=== PATIENT | female | born 1965 | race Caucasian/White ===

== ENCOUNTER 2018-07-27 06:04 | Emergency (ER) | payer BC, SELFPAY ==
[2018-07-27 06:17] VITALS: BP 89/56; PULSE 70; RESP 14; TEMP 36.4; O2SAT 98
--- NOTE | 2018-07-27 06:31 | W.ED.GENAD ---
Discharge Plan Disposition Patient Disposition: HOME Condition: Good Discharge Details Chief Complaint: RashLesion Clinical Impression: Cellulitis, Encounter for evaluation of wound Primary Care Provider: Cyndie Gómez ED Provider: Mukesh Viveros Home Meds and New Rx's Prescriptions: New doxycycline hyclate 100 mg capsule 100 mg PO BID Qty: 20 RF: 0 No Action No Known Home Meds RF: 0 Discharge Instructions Instructions: Cellulitis (ED) Additional Instructions: Please take the antibiotic as directed. If you notice any spreading of the redness, increase in the size, worsening tenderness, please return immediately. If you notice any worsening of your symptoms, or any new symptoms such as vomiting, diarrhea, fever, chills, shortness of breath, chest pain, numbness, weakness, or fainting , please return immediately to the emergency department for reevaluation. Please follow up with your primary care provider as soon as possible for reassessment and reevaluation. As always, it was a pleasure participating in your medical care today. Referrals: Cyndie Gómez [Primary Care Provider] - Medical Decision Making This is a 53-year-old female who presents for evaluation of a bite. She states that she saw a tick there earlier this morning, pulled it off with her however she feels that the body crawled back in. And she went to get checked out. Exam demonstrates a small little violaceous lesion roughly to 3 mm in diameter, with mild surrounding erythema. No evidence of erythema multiforme, erythema or migraines. Bedside ultrasound demonstrates no evidence of fluctuance or abscess. Patient is insistent that it was a tick. With no signs of severe cellulitis or severe Lyme, we will give a prescription for doxycycline to be taken as needed. We discussed risks and benefits of this. I have extensively reviewed the treatment plan and discharge instructions with the patient. I have addressed all patient concerns at this time. The patient was made aware of what symptoms to monitor for that would warrant a return to the emergency department. Discussed the plan with the patient, they demonstrate verbal understanding and agreement with our assessment and plan at this time. HPI General Date/Time Provider Initiated Documentation: 07/27/18 06:21. HPI Narrative: This is a 53-year-old female who presents today for evaluation of a wound on her right flank. Patient states that this morning she noticed a tick on that region, she states that she and her pulled it off with tweezers however she was concerned that the body kari itself back into the skin and she is been unable to get it out since then. She states that since then she has an area of small irritation redness on her right flank informed to be checked out to make sure there was no body and there is still. Patient has no other complaints at this time. She denies any fever, chills, nausea vomiting or diarrhea. Tetanus is up-to-date, she has no medication allergies to antibiotics. Related Data Home Medications Medication Instructions Recorded Confirmed Unknown [No Known Home Meds] 07/27/18 07/27/18 doxycycline hyclate 100 mg PO BID #20 cap 07/27/18 Previous Rx's Medication Instructions Recorded doxycycline hyclate 100 mg PO BID #20 cap 07/27/18 Allergies Allergy/AdvReac Type Severity Reaction Status Date / Time codeine AdvReac Nausea Unverified 07/27/18 06:31 General Stated Complaint: RashLesion ADOLFO: 5 Review of Systems Review of Systems All systems reviewed & are unremarkable except as noted in HPI and below PFSH Social History Smoking/Tobacco Use Status: Never Alcohol Intake: never Substance use type: does not use Do you feel safe at home: Yes Do you feel safe in your relationship?: Yes Exam Narrative Exam Narrative: 1.Const: Well-nourished, Well-developed, appearing stated age 2.Eyes: PERRL, no conjunctival injection, and symmetrical lids. 3.ENT: Atraumatic external nose and ears. Moist MM. Neck: Symmetric, trachea midline, No thyromegaly. 4.CVS: +S1/S2, No murmurs or gallops. Peripheral pulses 2+ and equal in all extremities. Brisk capillary refill in all extremities. 5.RESP: Unlabored respiratory effort. Clear to auscultation bilaterally. No wheezes rales or rhonchi 6.GI: Soft, Nontender/Nondistended, No hepatosplenomegaly. No guarding or rebound. 7.MSK: Normocephalic/Atraumatic, Extremities w/o deformity or ttp No cyanosis or clubbing, Normal movement of all extremities 8.Skin: Warm, Dry. No rashes or lesions. Right flank demonstrates a small scott lesion roughly 2 mm in diameter on the right flank, with mild erythema surrounding it, notable self-induced excoriations. No other abnormalities. No evidence of ringlike lesions 9.Neuro: veterinary technologist II-XII grossly intact. Sensation grossly intact, no focal neurologic deficits. 10.Psych: (AAO) x3. Appropriate mood and affect Course Vital Signs Temperature 36.4 C L 07/27/18 06:17 Pulse 70 07/27/18 06:17 Respiratory Rate 14 07/27/18 06:17 Blood Pressure 89/56 L 07/27/18 06:17 Pulse Oximetry 98 07/27/18 06:17 Temperature 36.4 C L 07/27/18 06:17 Temperature Source Tympanic 07/27/18 06:17 Pulse 70 07/27/18 06:17 Respiratory Rate 14 07/27/18 06:17 Blood Pressure 89/56 L 07/27/18 06:17 Blood Pressure Position Sitting 07/27/18 06:17 Pulse Oximetry 98 07/27/18 06:17 Oxygen Delivery Method Room Air 07/27/18 06:17 Oxygen Flow Rate 0 07/27/18 06:17 Pain Level 1 07/27/18 06:17 Comment 07/27/18 06:17
[2018-07-27 06:36] VITALS: BP 89/56; PULSE 70; RESP 14; TEMP 36.4; O2SAT 98
== END 2018-07-27 06:39 | disposition home or self-care (01) ==
PROVIDERS: Emergency Provider Student in an Organized Health Care Education/Training Program; PCP Family Medicine
DX: L03.311 Cellulitis of abdominal wall (principal)
CPT/HCPCS: 99283

== ENCOUNTER 2019-04-17 11:02 | Outpatient (REF) | payer BC, SELFPAY ==
[2019-04-17 13:23] LABS: ALT 17 U/L (14-59); AST 11 U/L (15-37); Albumin 4.4 g/dL (3.4-5.0); Alkaline Phosphatase 55 U/L (46-116); Anion Gap 10.7 mmol/L (3-11); BUN 12 mg/dL (7-18); Bilirubin, Total 0.7 mg/dL (0.2-1.0); C-Reactive Protein 0.08 mg/dL (0.0-0.3); CO2 27.3 mmol/L (21.0-32.0); CREATININE 0.66 mg/dL (0.55-1.02); Calcium 9.4 mg/dL (8.5-10.1); Chloride 104 mmol/L (98-107); Glucose 95 mg/dL (74-106); Potassium 4.4 mmol/L (3.5-5.1); Sodium 142 mmol/L (136-145); TSH (W/Ref FT4) 1.02 uIU/mL (0.36-3.74); Total Protein 7.6 g/dL (6.4-8.2)
[2019-04-17 13:33] LABS: HCT 41.3 % (36.0-46.0); HGB 13.6 g/dL (12.0-15.5); Mean Corp. HGB Concentration 32.9 g/dL (32.0-36.0); Mean Corpuscular Hemoglobin 30.6 pg (27.0-33.0); Mean Corpuscular Volume 92.8 fL (80-95); Mean Platelet Volume 9.4 fL (8.0-11.0); Platelet Count 336 x1000/uL (130-400); RBC 4.45 m/cumm (4.00-5.20); White Blood Cell Count 5.22 k/cumm (4.4-10.8)
[2019-04-17 14:21] LABS: ESR 12 mm/hr (0-30)
[2019-04-19 21:38] LABS: Anaplasma phagocytophilum Negative (Negative); B. miyamotoi PCR Negative (Negative); Babesia divergens/MO-1 Negative (Negative); Babesia duncani Negative (Negative); Babesia microti Negative (Negative); Ehrlichia chaffeensis Negative (Negative); Ehrlichia ewingii/canis Negative (Negative); Ehrlichia muris eauclairensis Negative (Negative)
[2019-04-20 15:02] LABS: ANA Interpretation Negative (Negative)
[2019-04-20 15:31] LABS: Lyme Ab w Rflx to Lyme Confirm Negative (Negative)
== END 2019-04-17 11:22 ==
LOC: NCHCN 11:02
PROVIDERS: PCP Family Medicine; Visit Provider Family Medicine
DX: M25.50 Pain in unspecified joint (principal); R53.83 Other fatigue
CPT/HCPCS: 80053; 85027; 85652; 87798; 84443; 86038; 86140; 86431; 86618

== ENCOUNTER 2020-02-15 18:45 | Outpatient (REF) | payer BC, SELFPAY ==
[2020-02-19 23:07] LABS: Patient Race White; SARS-CoV-2 RNA Undetected (Undetected); SARS-CoV-2 Specimen Source Nasal
== END 2020-02-15 19:05 ==
LOC: NCHCN 18:45
PROVIDERS: PCP Family Medicine; Visit Provider Nurse Practitioner Family
DX: R53.83 Other fatigue (principal); R51.9 Headache, unspecified
CPT/HCPCS: U0003

== ENCOUNTER 2020-02-24 12:03 | Outpatient (REF) | payer BC, SELFPAY ==
[2020-02-24 22:03] LABS: Abs Immature Grans 0.03 10^3/uL (0.0-0.06); Absolute Basophil Count 0.02 10^3/uL (0.0-0.2); Absolute Eosinophil Count 0.06 10^3/uL (0.0-0.7); Absolute Lymphocyte Count 1.08 10^3/uL (1.2-3.4); Absolute Neutrophil Count 3.12 10^3/uL (1.2-6.7); Basophils % 0.4; Eosinophils % 1.2; HCT 37.7 % (36.0-46.0); HGB 12.4 g/dL (11.2-15.7); Immature Grans % 0.6; Lymphocytes % 22.5; MCH 30.8 pg (27.0-33.0); MCHC 32.9 % (32.0-36.0); MCV 93.5 fL (80-95); MPV 10.7 fL (8.0-11.0); Monocytes % 10.4; Neutrophils % 64.9; Nucleated RBC 0 %; Platelet Count 254 10^3/uL (130-400); RBC 4.03 10^6/uL (3.93-5.22); RDW 11.4 % (11.7-14.6); RDW-SD 38.3 fL; WBC 4.81 10^3/uL (4.4-10.8)
[2020-02-24 22:09] LABS: ALT 16 U/L (14-59); AST 10 U/L (15-37); Albumin 3.8 g/dL (3.4-5.0); Alkaline Phosphatase 44 U/L (46-116); Anion Gap 5.9 mmol/L (3-11); BUN 8 mg/dL (7-18); Bilirubin, Total 0.7 mg/dL (0.2-1.0); CO2 30.1 mmol/L (21.0-32.0); CREATININE 0.72 mg/dL (0.55-1.02); Calcium 8.7 mg/dL (8.5-10.1); Chloride 103 mmol/L (98-107); Glucose 94 mg/dL (74-106); Sodium 139 mmol/L (136-145); Total Protein 6.9 g/dL (6.4-8.2)
== END 2020-02-24 12:23 ==
LOC: NCHCN 12:03
PROVIDERS: PCP Family Medicine; Visit Provider Family Medicine
DX: R53.83 Other fatigue (principal)
CPT/HCPCS: 80053; 85025

== ENCOUNTER 2021-01-15 07:51 | Emergency (ER) | payer BC, SELFPAY ==
[2021-01-15 07:54] VITALS: BP 92/58; PULSE 65; RESP 17; TEMP 36.5; O2SAT 98
--- NOTE | 2021-01-15 08:10 | ED.GENADUL_ITS ---
Discharge Plan Disposition Patient Disposition: HOME Condition: Stable Discharge Details Clinical Impression: Acute pain of right wrist Primary Care Provider: Cyndie Gómez ED Provider: Violetta Cristina Home Meds and New Rx's Prescriptions: No Action No Known Home Meds RF: 0 Discharge Instructions Instructions: Wrist Injury (ED) Additional Instructions: As we discussed, I am concerned for potential injury to your navicular bone. The read from radiology is pending but I do not appreciate any acute fracture. I will call you with the results once they are back. Please continue with thumb spica splint until reevaluated by orthopedics. Please encourage rest, ice, amena vation. May continue with Tylenol and ibuprofen as discomfort. Please call orthopedics on Saturday to schedule follow-up appointment, number listed below. If you develop any new or worsening symptoms please seek care urgently once again. Referrals: Cyndie Góemz [Primary Care Provider] - [place] Pettit MD [ [facility] STAFF PHYSICIAN] - Medical Decision Making Patient is a pleasant 55-year-old [id number] female presenting today after tripping over a hose while running after a chicken and falling on her outstretched right hand. This occurred yesterday. Has had pain in the distal radius and proximal radial aspect of the right hand. She denies other injury the time of the incident. No numbness or tingling. On exam, patient appears nontoxic. She has 2+ distal pulses. Full range of motion of fingers and elbow. Patient is holding wrist in a straight position and does not want to move secondary to pain. She does have ecchymosis and swelling over the distal radius and anatomical snuffbox. She does have si gnificant discomfort with palpation over the snuffbox. No pain with axial loading of the thumb. Ligamentously intact. Sensation is intact. Concern primarily for navicular fracture or distal radius fracture. Will obtain x-ray. Patient did take acetaminophen prior to arrival, will augment this with ibuprofen. X-ray reviewed by myself. I not appreciate any acute fracture. Will sit with a thumb spica splint. I will call the patient with a final read from radiology. I encouraged rest, ice, elevation. I remain concerned for potential navicular injury as her pain is directly over the anatomical snuffbox. I have asked that she follow-up with orthopedics for reevaluation, she will call on Saturday to schedule follow-up appointment. Return precautions were discussed. We discussed activity she should avoid. All of her questions and concerns were addressed to begin this plan HPI General Mode of arrival: ambulatory . Date/Time Provider Initiated Documentation: 01/15/21 07:54 . Limitations to Documentation: no limitations . Information obtained by: patient and RN notes reviewed . History of Present Illness 55 year old F presents to the emergency department with the chief complaint of right wrist pain, described as moderate, with intensity rated at 7. Quality is described as aching, and is localized to the right and upper extremity. Patient reports no radiation. Patient started experiencing this day(s) (1) and it has been constant. Immobilization improves symptom(s), Movement worsens symptoms . Patient notes no other symptoms.. Patient did receive the following treatments prior to arrival, other (APAP) Related Data Home Medications Medication Instructions Recorded Confirmed Unknown [No Known Home Meds] 07/27/18 01/15/21 Allergies Allergy/AdvReac Type Severity Reaction Status Date / Time codeine AdvReac Nausea Unverified 01/15/21 08:09 General Stated Complaint: Orthopedic ADOLFO: 3 Review of Systems Constitutional Constitutional: Reports as per HPI, Denies chills and Denies fever(s) Musculoskeletal Musculoskeletal: Reports as per HPI, Reports joint swelling, Denies muscle weakness, Denies numbness, Reports radiating pain into limb and Denies tingling Integumentary/Breasts Skin/Breast: Reports as per HPI, Denies rash and Denies wounds Neurologic Neurologic: Reports as per HPI, Denies numbness, Denies tingling and Denies paresthesias [facility] Social History Smoking/Tobacco Use Status: Never Smoking risk assessment performed?: Yes Alcohol Intake: never Substance use type: does not use Do you feel safe at home: Yes Do you feel safe in your relationship?: Yes Exam Const General: cooperative, healthy appearing, uncomfortable, no acute distress, well developed and well groomed Nutritional Appearance: average body habitus and well nourished Orientation: alert and awake Resp Effort & Inspection: normal respiratory effort, able to speak in complete sentences and no respiratory distress Cardio Rate: regular rate Rhythm: regular rhythm Skin General skin exam: ecchymosis (distal radius, proximal hand) Neuro General: patient alert and patient awake Cognition: normal cognition Speech: speech normal Gait: normal gait Motor: muscle tone normal throughout Sensory Exam: no sensory deficits noted Extrem Hand/finger images: 1. Area of ecchymosis and swelling. Patient is tender throughout here. Tender over the distal radius. Pain is maximal over the anatomical snuffbox. She does not have pain with axial thumb loading. She is able to flex and extend the thumb against resistance. Full range of motion of her fingers. Sensation is intact. No evidence of trauma or pain elsewhere. Full range of motion of the elbow. Psych Appearance: grossly normal and well kempt Mental Status: mental status grossly normal Speech and Movement: speech and movement normal Course Vital Signs Vital signs: Vital Signs Temperature 36.5 C 01/15/21 07:54 Pulse 65 01/15/21 07:54 Respiratory Rate 17 01/15/21 07:54 Blood Pressure 92/58 L 01/15/21 07:54 Pulse Oximetry 98 01/15/21 07:54 Temperature 36.5 C 01/15/21 07:54 Temperature Source Temporal Artery Scan 01/15/21 07:54 Pulse 65 01/15/21 07:54 Respiratory Rate 17 01/15/21 07:54 Blood Pressure 92/58 L 01/15/21 07:54 Blood Pressure Position Sitting 01/15/21 07:54 Pulse Oximetry 98 01/15/21 07:54 Oxygen Delivery Method Room Air 01/15/21 07:54 Oxygen Flow Rate 0 01/15/21 07:54 Pain Level 7 01/15/21 08:03 Comment 01/15/21 07:54
[2021-01-15] MEDS: Ibuprofen 600 MG TAB PO (08:13)
--- NOTE | 2021-01-15 08:33 | DI.RAD_ITS ---
Exam(s) XR WRIST RT COMPL NAVICULAR EXAM: XR WRIST RT COMPL NAVICULAR CLINICAL HISTORY: FOOSH. TECHNIQUE: 2D digital imaging was performed. COMPARISON: No exams were available for comparison FINDINGS: No evidence of fracture of distal radius and ulna nor significant ulnar variance. Scaphoid-navicular appears unremarkable as does the scapholunate distance. Moderate degenerative changes are noted in the 1st carpometacarpal joint, this being the articulation between the thumb metacarpal and trapezium. IMPRESSION: No acute fracture evident. Degenerative changes at the 1st carpometacarpal joint. DATA REPOSITORY: RADIATION DOSE DELIVERED:
[2021-01-15 09:24] VITALS: BP 106/55; PULSE 63; RESP 17; TEMP 36.5; O2SAT 98
--- NOTE | 2021-01-15 10:14 | DI.VRAD_ITS ---
PROCEDURE INFORMATION: Exam: XR Right Wrist Exam date and time: 01/15/2021 8:10 AM Age: 55 years old Clinical indication: Other: Foosh, RT wrist pain after fall yesterday TECHNIQUE: Imaging protocol: XR Right wrist. Views: 3 or more views. COMPARISON: No relevant prior studies available. FINDINGS: Bones/joints: Narrowing of the 1st carpometacarpal joint with associated osteophytes. Small osseous densities are present along the radial aspect the 1st carpometacarpal joint. Soft tissues: Normal. IMPRESSION: Changes of the 1st carpometacarpal joint likely reflect degenerative change although superimposed fracture remains within the differential. Adjacent osseous densities could reflect loose bodies. Dictated and Authenticated by: Marek Charles MD. Ordering:KADIE Shipley MD
== END 2021-01-15 09:21 | disposition home or self-care (01) ==
PROVIDERS: Emergency Provider Physician Assistant; PCP Family Medicine
DX: M25.531 Pain in right wrist (principal); W01.0XXA Fall on same level from slipping, tripping and stumbling without subsequent striking against object, initial encounter
CPT/HCPCS: 29125; 99283; 73110; 99282

== ENCOUNTER 2021-02-02 09:19 | Outpatient (CLI) | payer BC, SELFPAY ==
--- NOTE | 2021-02-02 08:45 | DI.RAD_ITS ---
Exam(s) XR WRIST RT COMPL NAVICULAR EXAM: XR WRIST RT COMPL NAVICULAR CLINICAL HISTORY: right wrist injury. TECHNIQUE: 2D digital imaging was performed. COMPARISON: CR,XR XR WRIST RT COMPL NAVICULAR from 01/15/2021 FINDINGS: On navicular view there is a cortical irregularity on the distal medial aspect of the scaphoid-navicu lar bone which may be a subtle fracture at this level. No other fractures identified in the carpal r ow bones. No dislocation. Degenerative changes at the 1st carpometacarpal joint are again noted. IMPRESSION: DATA REPOSITORY: RADIATION DOSE DELIVERED:
== END 2021-02-02 09:20 | disposition home or self-care (01) ==
LOC: DIORS 09:20
PROVIDERS: PCP Family Medicine; Referring Provider Family Medicine; Visit Provider Physician Assistant
DX: M25.531 Pain in right wrist (principal); M85.841 Other specified disorders of bone density and structure, right hand
CPT/HCPCS: 73110

== ENCOUNTER 2021-02-23 21:17 | Outpatient (REF) | payer BC, SELFPAY ==
[2021-02-25 13:43] LABS: COVID-19 RT-PCR UVMMC Result Negative (Negative)
== END 2021-02-23 21:18 | disposition home or self-care (01) ==
LOC: LBN 21:17
PROVIDERS: PCP Family Medicine; Visit Provider Physician Assistant Medical
DX: Z20.822 Contact with and (suspected) exposure to COVID-19 (principal); J06.9 Acute upper respiratory infection, unspecified
CPT/HCPCS: U0003

== ENCOUNTER 2021-07-03 10:56 | Outpatient (REF) | payer BC, SELFPAY ==
--- NOTE | 2021-07-03 09:30 | PAPFT_PTH ---
PATIENT: Maris Cabrera LOC: [facility]#:[id number] AGE/SX: 56/F ROOM: RE07/03/[address]: Cyndie Gómez : 1965 BED: DIS: 07/03/2021 SPEC #: [id number] RECD: 07/03/21 18:04 STATUS: DEVON RESnow #: [id number] SARAH: 07/03/21 09:[address]: Cyndie Gómez DEPT: [facility] Cytology RECD BY: Amber Cortes Tissues: 1 - CX/ENDOCX FOR PAP SMEARS Procedures: PAP THIN PREP/UVM Screening Comments: [id number] (UNSATISFACTORY FOR EVALUATION)
[2021-07-03 17:14] LABS: Calculated LDL 116 mg/dL (<100); Cholesterol 214 mg/dL (<200); HDL Cholesterol 87 mg/dL (40-60); Triglyceride 58 mg/dL (<150)
== END 2021-07-03 10:57 | disposition home or self-care (01) ==
LOC: NCHCN 10:56
PROVIDERS: PCP Family Medicine; Visit Provider Family Medicine
DX: Z00.00 Encounter for general adult medical examination without abnormal findings (principal); Z12.4 Encounter for screening for malignant neoplasm of cervix; Z11.51 Encounter for screening for human papillomavirus (HPV); R87.615 Unsatisfactory cytologic smear of cervix
CPT/HCPCS: 80061; 88142

== ENCOUNTER 2021-07-27 03:02 | Outpatient (CLI) | payer BC, SELFPAY ==
--- NOTE | 2021-07-27 15:00 | NS.NUTBLAN_ITS ---
Rin was referred for nutritional counseling for binge eating disorder with anxiety and depression 67 inches 166 lbs BMI 26 Rin reports struggling with binge eating most of her adult life. Strong family history of eating disorders. Her daughter has recovered from anorexia. 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 She states she can't sit down and prefers to work until exhaustion. She was raised in a family that focused on importance of eating healthy and being skinny. Rin used to exercise a lot. No history of purging. Food Record: Typically eats 3 well balanced meals but will 2-4 times per week binges on foods such as: pastries, pizza, popovers, fried foods and other processed sugary/salty foods. Binges are followed by regret and repulsion/anger. Rin has always been thin, despite frequent binges, but fears that as she gets older, she will start to have ill health affects. Overall health thus far has been very good. She does not want to take medications. Will not consider anti anxiety medications. Session today focused on etiology and pathology of binge eating disorder and how treatment needs to focus on the route cause of stress. Rin has a very stressful life as she works very hard, long days and is building on her property (mostly herself) and cares for her mother with alzheimer. Her binges are a result of needing a break or a release/relaxation/reward after feeling overwhelmed. Binging can be reduced/stopped once another functional coping mechanism is chosen that will help with stress relief. Rin reports she has had many periods when binging was at a minimun and she was practicing self care. She often returns to binging once self care phase is over as a result of more job responsibilities or class is completed. Session today focused on ways to identify other coping mechanisms that give Rin relaxation such as meditation, exercise, essential oils, music. Encouraged Rin to journal her feelings before and after binging and to read as much as she can on the disorder. Recommend that Rin get a therapist that specializes in over eating/binging. WIll follow up by phone in next 7 days.
== END 2021-07-27 03:03 | disposition home or self-care (01) ==
LOC: DS 03:02
PROVIDERS: PCP Family Medicine; Visit Provider Dietitian, Registered
DX: F50.81 Binge eating disorder (principal); F41.8 Other specified anxiety disorders; Z71.3 Dietary counseling and surveillance
CPT/HCPCS: 97802

== ENCOUNTER 2022-08-20 16:30 | Outpatient (REF) | payer BC, SELFPAY | END 2022-08-20 16:31 | disposition home or self-care (01) | LOC: NCHCN 16:30 | PROVIDERS: PCP Family Medicine; Visit Provider Family Medicine | DX: R30.0 Dysuria (principal) | CPT/HCPCS: 87077; 87086; 87186 ==

== ENCOUNTER 2022-10-03 10:51 | Outpatient (CLI) | payer BC, SELFPAY ==
--- NOTE | 2022-10-03 | DI.RAD_ITS ---
Exam(s) XR FOOT RT COMPLETE EXAM: XR FOOT RT COMPLETE CLINICAL HISTORY: RT FOOT PAIN, M79.671. TECHNIQUE: 2D digital imaging was performed of the right foot. Three images were obtained. AP, obl ique and lateral views were obtained. COMPARISON: No exams were available for comparison FINDINGS: BONES: There is an acute fracture through the base of the 5th metatarsal. There is very mild displac ement of the fracture. No bony destructive lesion is seen. There is a plantar calcaneal spur. JOINTS: No dislocation present. SOFT TISSUE: Soft tissue swelling at the lateral aspect of the foot. IMPRESSION: Mildly displaced fracture of the base of the 5th metatarsal with mild displacement and associated sof t tissue swelling. DATA REPOSITORY: RADIATION DOSE DELIVERED:
== END 2022-10-03 11:11 ==
LOC: DI 10:52
PROVIDERS: PCP Family Medicine; Visit Provider Family Medicine
DX: S92.351A Displaced fracture of fifth metatarsal bone, right foot, initial encounter for closed fracture (principal); X58.XXXA Exposure to other specified factors, initial encounter
CPT/HCPCS: 73630

== ENCOUNTER 2022-10-16 08:55 | Outpatient (CLI) | payer BC, SELFPAY ==
--- NOTE | 2022-10-16 08:30 | DI.RAD_ITS ---
Exam(s) XR FOOT RT COMPLETE EXAM: XR FOOT RT COMPLETE CLINICAL HISTORY: F/U FRACTURE. TECHNIQUE: 2D digital imaging was performed. COMPARISON: CR XR FOOT RT COMPLETE from 10/03/2022 FINDINGS: 3 views Again noted is a mildly displaced fracture at the base of the 5th metatarsal. No callus formation at this time. No further displacement. No additional fractures evident. No radiopaque foreign body. Large inferior calcaneal spur is noted. IMPRESSION: Mildly displaced fracture at the base of the 5th metatarsal again noted. DATA REPOSITORY: RADIATION DOSE DELIVERED:
== END 2022-10-16 08:56 | disposition home or self-care (01) ==
LOC: DIORS 08:55
PROVIDERS: PCP Family Medicine; Referring Provider Family Medicine; Visit Provider Physician Assistant
DX: S92.351D Displaced fracture of fifth metatarsal bone, right foot, subsequent encounter for fracture with routine healing (principal); X58.XXXD Exposure to other specified factors, subsequent encounter
CPT/HCPCS: 73630

== ENCOUNTER 2022-10-25 10:00 | Outpatient (CLI) | payer BC, SELFPAY ==
--- NOTE | 2022-10-25 08:00 | DI.RAD_ITS ---
Exam(s) XR FOOT RT COMPLETE EXAM: XR FOOT RT COMPLETE CLINICAL HISTORY: right foot fracture. TECHNIQUE: 2D digital imaging was performed of the right foot. Three images were obtained. AP, obl ique and lateral views were obtained. COMPARISON: CR XR FOOT RT COMPLETE from 10/16/2022 FINDINGS: BONES: There has been no significant change in alignment of the fracture through the base of the 5th metatarsal. No bony destructive lesion is seen. There is a plantar calcaneal spur. JOINTS: No dislocation present. SOFT TISSUE: Normal. IMPRESSION: Stable 5th metatarsal fracture. DATA REPOSITORY: RADIATION DOSE DELIVERED:
== END 2022-10-25 10:01 | disposition home or self-care (01) ==
LOC: DIORS 10:00
PROVIDERS: PCP Family Medicine; Referring Provider Family Medicine; Visit Provider Physician Assistant
DX: S92.351A Displaced fracture of fifth metatarsal bone, right foot, initial encounter for closed fracture (principal); X58.XXXA Exposure to other specified factors, initial encounter
CPT/HCPCS: 73630

== ENCOUNTER 2022-11-29 09:20 | Outpatient (CLI) | payer BC, SELFPAY ==
--- NOTE | 2022-11-29 09:15 | DI.RAD_ITS ---
Exam(s) XR FOOT RT COMPLETE EXAM: XR FOOT RT COMPLETE CLINICAL HISTORY: f/u 5th metatarsal fx. TECHNIQUE: 2D digital imaging was performed. COMPARISON: CR XR FOOT RT COMPLETE from 10/25/2022 FINDINGS: 3 views There has been some further healing at the fracture site of the base of the 5th metatarsal. The frac ture line is still evident but slightly less so. No additional fractures evident. No radiopaque for eign body. Moderate size inferior calcaneal spur again noted. IMPRESSION: Mild further healing at the fracture site at the base of the 5th metatarsal. DATA REPOSITORY: RADIATION DOSE DELIVERED:
== END 2022-11-29 09:21 | disposition home or self-care (01) ==
LOC: DIORS 09:20
PROVIDERS: PCP Family Medicine; Visit Provider Student in an Organized Health Care Education/Training Program
DX: S92.351D Displaced fracture of fifth metatarsal bone, right foot, subsequent encounter for fracture with routine healing (principal); X58.XXXD Exposure to other specified factors, subsequent encounter
CPT/HCPCS: 73630

== ENCOUNTER 2023-06-26 14:24 | Outpatient (REF) | payer BC, SELFPAY ==
[2023-06-26 21:29] LABS: ALT 25 U/L (14-59); AST 16 U/L (15-37); Albumin 4.4 g/dL (3.4-5.0); Alkaline Phosphatase 79 U/L (46-116); BUN 15 mg/dL (7-18); Bilirubin, Total 0.5 mg/dL (0.2-1.0); CREATININE 0.7 mg/dL (0.55-1.02); Calcium 9.5 mg/dL (8.5-10.1); Calculated LDL 111 mg/dL (<100); Chloride 105 mmol/L (98-107); Cholesterol 212 mg/dL (<200); Estimated GFR 98.95 (mL/min/1.73m2); Glucose 81 mg/dL (74-106); HDL Cholesterol 80 mg/dL (40-60); Potassium 4.9 mmol/L (3.5-5.1); Sodium 144 mmol/L (136-145); Total Protein 7.6 g/dL (6.4-8.2); Triglyceride 106 mg/dL (<150)
[2023-06-26 21:49] LABS: Vitamin D 25 Total 25.7 ng/mL (30-100)
== END 2023-06-26 14:25 | disposition home or self-care (01) ==
LOC: NCHCN 14:24
PROVIDERS: PCP Family Medicine; Visit Provider Family Medicine
DX: Z00.00 Encounter for general adult medical examination without abnormal findings (principal)
CPT/HCPCS: 80053; 80061; 82306

== ENCOUNTER 2024-08-03 18:11 | Outpatient (REF) | payer BC, SELFPAY ==
[2024-08-03 21:53] LABS: Abs Immature Grans 0.01 10^3/uL (0.0-0.06); Absolute Basophil Count 0.02 10^3/uL (0.0-0.2); Absolute Eosinophil Count 0.05 10^3/uL (0.0-0.7); Absolute Lymphocyte Count 1.55 10^3/uL (1.2-3.4); Absolute Monocyte Count 0.51 10^3/uL (0.1-0.8); Absolute Neutrophil Count 2.44 10^3/uL (1.2-6.7); Basophils % 0.4 %; Eosinophils % 1.1 %; HCT 38.5 % (36.0-46.0); HGB 12.5 g/dL (11.2-15.7); Immature Grans % 0.2 %; Lymphocytes % 33.8 %; MCH 30.6 pg (27.0-33.0); MCHC 32.5 % (32.0-36.0); MCV 94 fL (80-95); Monocytes % 11.1 %; Neutrophils % 53.4 %; Platelet Count 224 10^3/uL (130-400); RBC 4.09 10^6/uL (3.93-5.22); RDW 11.9 % (11.7-14.6); RDW-SD 41.4 fL; WBC 4.58 10^3/uL (4.4-10.8)
[2024-08-03 22:08] LABS: ALT 31 U/L (14-59); AST 21 U/L (15-37); Albumin 4.3 g/dL (3.4-5.0); Alkaline Phosphatase 73 U/L (46-116); BUN 12 mg/dL (7-18); Bilirubin, Total 0.5 mg/dL (0.2-1.0); CREATININE 0.8 mg/dL (0.55-1.02); Calcium 9.5 mg/dL (8.5-10.1); Chloride 105 mmol/L (98-107); Estimated GFR 83.78 (mL/min/1.73m2); Glucose 113 mg/dL (74-106); Potassium 4.3 mmol/L (3.5-5.1); Sodium 143 mmol/L (136-145); Total Protein 7.4 g/dL (6.4-8.2)
[2024-08-05 10:49] LABS: Lyme Ab w Rflx to Lyme Confirm Negative (Negative)
[2024-08-07 00:14] LABS: Anaplasma phagocytophilum Negative (Negative); B. miyamotoi PCR Negative (Negative); Babesia divergens/MO-1 Negative (Negative); Babesia duncani Negative (Negative); Babesia microti Negative (Negative); Ehrlichia chaffeensis Negative (Negative); Ehrlichia ewingii/canis Negative (Negative); Ehrlichia muris eauclairensis Negative (Negative)
== END 2024-08-03 18:12 | disposition home or self-care (01) ==
LOC: LBN 18:11
PROVIDERS: PCP Family Medicine; Visit Provider Nurse Practitioner Family
DX: W57.XXXA Bitten or stung by nonvenomous insect and other nonvenomous arthropods, initial encounter (principal)
CPT/HCPCS: 80053; 87798; 85025; 86618

== ENCOUNTER 2024-11-04 12:08 | Outpatient (CLI) | payer BC, SELFPAY ==
--- NOTE | 2024-11-04 15:00 | DI.RAD_ITS ---
Exam(s) XR HIP RT COMPLETE AP PELVIS EXAM: XR HIP RT COMPLETE AP PELVIS CLINICAL HISTORY: M25.551 Pain in RT hip. TECHNIQUE: 2D digital imaging was performed. Two views COMPARISON: No exams were available for comparison FINDINGS: BONES: No acute fracture is present. No bony destructive lesion is seen. JOINTS: No dislocation present. Moderate right hip joint space narrowing, greater medially. Spurring at the acetabulum and margin of the femoral head. Mild narrowing of the left hip joint space with mild periarticular spurring. Mild degenerative changes at the SI joints and pubic symphysis. SOFT TISSUE: Normal. IMPRESSION: Moderate to severe degenerative changes of the right hip. Vtku-[id number] degenerative changes of the left hip. DATA REPOSITORY: RADIATION DOSE DELIVERED:
== END 2024-11-04 12:28 ==
LOC: DI 12:09
PROVIDERS: PCP Family Medicine; Visit Provider Family Medicine
DX: M16.0 Bilateral primary osteoarthritis of hip (principal)
CPT/HCPCS: 73502

== ENCOUNTER 2025-01-29 07:30 | Day surgery (SDC) | payer BC, SELFPAY ==
--- NOTE | 2025-01-28 18:50 | W.ANESPRE ---
General Info Date of Service Date Performed: 01/29/25 Height: 5 ft 8 in Weight: 68.096 kg Body Mass Index (BMI): 22.8 Surgical Procedure: Operation Date: 01/29/25 09:20 Proposed Procedure Side Surgeon p Colonoscopy Emily Piazno MD Meds Allergies and Home Medications Allergies Allergy/AdvReac Type Severity Reaction Status Date / Time codeine AdvReac Nausea Verified 01/29/25 07:52 Home Medication ?Medication ?Instructions ?Recorded calcium 500 mg tablet 500 mg PO DAILY 01/27/25 cholecalciferol (vitamin D3) 25 25 mcg PO DAILY 01/27/25 mcg (1,000 unit) capsule multivitamin 1 tab PO DAILY 01/27/25 Current Visit Medications: Current Medications Generic Name Dose Route Start Last Admin Trade Name Freq PRN Reason Stop Dose Admin Ringer's Solution 1,000 mls @ 80 mls/hr 01/29/25 06:00 IV 01/29/25 23:59 INFUSION GERA IV Miscellaneous Supplies 1 each 01/29/25 06:00 Iv Access IV 01/29/25 23:59 DIRECTED GERA Sodium Chloride 0 ml 01/29/25 06:00 Normal Saline Flush 10 Ml Syr IV 01/29/25 23:59 PRN PRN Sodium Chloride 0 ml 01/29/25 06:00 Normal Saline 10 Ml Vial IJ 01/29/25 23:59 DIRECTED PRN Sterile Water 0 ml 01/29/25 06:00 Water,Injection,Sterile 10 Ml Vial IJ 01/29/25 23:59 DIRECTED PRN PFSH Active Problems Active Problems: Problem Status Onset Code Tubular adenoma Acute D36.9 Closed fracture of fifth metatarsal bone Acute ~10/03/22 S92.353A Arthritis of carpometacarpal (CMC) joint of right thumb Acute M18.11 Fracture of scaphoid of right wrist Acute 01/15/21 S62.001A Acute pain of right wrist Acute M25.531 Medical History Medical History History of hepatitis A History of malaria Headache Fatigue Joint pain Non-scarring alopecia Glossodynia Xerostomia Retinal disorder Anxiety Over weight Surgical History Surgical History History of appendectomy History of left knee surgery Hx of colonoscopy with polypectomy (~2018) Adenomatous 2018: tubular, sessile serrated adenomas +1cm polyp [place]sectable[place] [facility] [place] Smoking/Tobacco Use Status: Never Passive smoking exposure: No Alcohol Alcohol Intake: never Substance Use Substance use type: does not use Vital Signs and Lab Results Vital Signs Most Recent Vital Signs in EMR: Temp Pulse Resp BP Pulse Ox 36.5 C 65 16 109/63 97 01/29/25 07:54 01/29/25 07:54 01/29/25 07:54 01/29/25 07:54 01/29/25 07:54 Anesthesia Assessment and Plan Anesthesia History Personal History: No History of Anesthesia Complications Family History: No Family History of Anesthesia Complications Exercise Tolerance Exercise Tolerance: Metabolic Equivalents>4 Cardiac & Pulmonary Exam Cardiac Exam: Normal S1/S2 Heart Sounds Pulmonary Exam: Clear Bilateral Breath Sounds Implantable Cardiac Device Does patient have a Pacemaker or an ICD?: No Airway Exam Known Difficult Airway: No Mallampati Class: 3 Mouth Opening: Normal (> 3cm) Thyromental Distance: Less than 3 cm Neck Range of Motion: Full ROM Neck Circumference: Normal Teeth Condition: Normal Dentition ASA Classification ASA Score: ASA 2 Emergency Case?: No NPO Status NPO Status: NPO Clears >2 hours, Solids >8 hours Anesthesia Plan Resuscitation Status: Full Code Anesthesia Technique: General Anesthesia Airway Planned: Natural Airway Monitors Used: Standard Monitors Preoperative Comments:: 59 yo for colo. Sig PMHx: anxiety. Never smoker/EtOH. [place] [place] f[place] 150 mcg, midaz 3 mg.
[2025-01-29 07:54] VITALS: BP 109/63; PULSE 65; RESP 16; TEMP 36.5; O2SAT 97
[2025-01-29] MEDS: Lactated Ringers 1,000 ML 80 ML IV (08:04)
[2025-01-29 09:01] VITALS: BMI 22.8
--- NOTE | 2025-01-29 09:47 | W.PM.HP.N ---
Date of service: 01/29/25 Time of Service: 09:47 Assessment and Plan Assessment and plan (1) Tubular adenoma: Status: Acute Assessment and plan: Patient is a 59 yo female who presents for surveillance colonoscopy given a personal history of polyps. She denies any changes in bowel habits. She denies any recent changes in her health and is feeling better from her recent upper respiratory infection. The procedure was discussed and consent previously obtained. All questions were answered. Plan for surveillance colonoscopy. History of Present Illness Narrative: Patient is a 59 yo female who presents for a screening colonoscopy. She does have a personal history of polyps and a family history of colon cancer. Review of Systems Constitutional Constitutional: Denies chills and Denies fever(s) ENT Ears, Nose, Mouth, and Throat: Denies nasal congestion and Denies sore throat Cardiovascular Cardiovascular: Denies chest pain and Denies dyspnea Respiratory Respiratory: Denies dyspnea Gastrointestinal Gastrointestinal: Denies abdominal pain, Denies nausea and Denies vomiting Musculoskeletal Musculoskeletal: Denies arthralgias, Denies muscle weakness and Denies numbness Neurologic Neurologic: Denies numbness PFSH All Active Problems Tubular adenoma (Acute) Closed fracture of fifth metatarsal bone (Acute ~10/03/22) Arthritis of carpometacarpal (CMC) joint of right thumb (Acute) Fracture of scaphoid of right wrist (Acute 01/15/21) Acute pain of right wrist (Acute) Medical History History of hepatitis A History of malaria Headache Fatigue Joint pain Non-scarring alopecia Glossodynia Xerostomia Retinal disorder Anxiety Over weight Surgical History History of appendectomy History of left knee surgery Hx of colonoscopy with polypectomy (~2017) Adenomatous 2018: tubular, sessile serrated adenomas +1cm polyp unresectable. 3yr recall 2020, [facility] [place] Social History Smoking/Tobacco Use Status: Never Smoking risk assessment performed?: Yes Alcohol Intake: never Substance use type: does not use Housing: house Current gender identity: female Do you feel safe at home: Yes Do you feel safe in your relationship?: Yes Meds Allergies and Home Medications Allergies Allergy/AdvReac Type Severity Reaction Status Date / Time codeine AdvReac Nausea Verified 01/29/25 07:52 Home Medications ?Medication ?Instructions ?Recorded ?Confirmed ?Type calcium 500 mg tablet 500 mg PO DAILY 01/27/25 01/29/25 History cholecalciferol (vitamin D3) 25 25 mcg PO DAILY 01/27/25 01/29/25 History mcg (1,000 unit) capsule multivitamin 1 tab PO DAILY 01/27/25 01/29/25 History Exam Narrative Exam Narrative: General: Well appearing, no acute distress. Skin: Good turgor, no visible rashes or lesion HEENT: Normocephalic, atraumatic CV: Regular rate Lungs: Bilateral equal chest rise, non-labored breathing Abdomen: Non-distended Extremities: Warm, well perfused Neurologic: No focal deficits Psychiatric: Alert and oriented, normal mood and affect Results Last Vital Signs Temp 36.5 C 01/29/25 07:54 Pulse 65 01/29/25 07:54 Resp 16 01/29/25 07:54 BP 109/63 01/29/25 07:54 Pulse Ox 97 01/29/25 07:54 Time Spent Time spent with Patient: <40 minutes Time was spent: preparing to see the patient(eg.review tests), obtaining and/or reviewing separately otained hiistory and counseling the patient
[2025-01-29 10:26] VITALS: BP 103/63; PULSE 65; RESP 16; TEMP 36; O2SAT 98
--- NOTE | 2025-01-29 10:26 | W.PM.DSUDISC ---
Date of service: 01/29/25 Discharge Plan Disposition Patient Disposition: Home Condition: Good Discharge Details Reason For Visit: Personal history of colon polyps Attending Provider: Emily Pizano Primary Care Provider: Cyndie Gómez Home Meds and New Rx's Prescriptions: Continued cholecalciferol (vitamin D3) 25 mcg (1,000 unit) capsule 25 mcg PO DAILY multivitamin Tablet 1 tab PO DAILY calcium 500 mg tablet 500 mg PO DAILY Discharge Instructions Additional Instructions: Your colonoscopy went well today. You did not have any polyps. Given your family history it is recommended that you have a repeat colonoscopy in 5 yrs. Please contact the surgery office if you have further questions or concerns. 1. If tolerated, consume a soft, low fiber diet for 1-2 days. 2[address] Do not drive, drink alcohol, operate machinery, make critical decisions, or do activities that require coordination or balance for 24 hours. 3. Because air was put into your colon during the procedure, expelling air from your rectum (passing gas or farting) is normal. 4. You may not have a bowel movement for 1-3 days because of the colonoscopy prep. This is normal. 5. Go directly to the emergency room if you notice any of the following: Develop chills (warm to touch), or if you have a thermometer and your temperature is above 101 Difficulty breathing or difficultly swallowing Persistent vomiting Severe abdominal pain, other than gas cramps Severe chest pain Black, tarry stools Any bleeding ? exceeding one tablespoon 6. Call your physician if the site where your intravenous was started becomes red, swollen, painful, and warm to touch. 7. Your physician has reviewed your pre-procedure medications. Please continue to take those medications as previously ordered. You will be given specific information/education regarding any changes to your medications before leaving. Stand Alone Forms: Anesthesia Discharge InstCaren Yang (DSU) Activity:: Activity as Tolerated Diet:: As Tolerated Discharge Orders Discharge Orders: Discharge Order (Routine); Ordered 01/29/25 Ordered By: Emily Pizano DS: Diagnosis Discharge Diagnosis (1) Tubular adenoma: Status: Acute
--- NOTE | 2025-01-29 10:28 | COLE_ITS ---
Date of service: 01/29/25 Time of Service: 10:28 Colonoscopy Report Date of procedure: 01/29/25 Pre-op diagnosis general: Personal history of colon polyps, family history of colon cancer Post-op diagnosis procedure note: same Procedure: Colonoscopy Surgeon: Emily Pizano Anesthesia Type: General:No Airway Estimated blood loss (mL): 1 Pathology: none sent Complications: None Disposition: PACU Indications: Patient is a 59 yo female who presents for a surveillance colonoscopy given personal history of polyps and family history of colon cancer. Prep: Miralax/Dulcolax Procedure Start Time: 10:00 Procedure End Time: :22 Retraction Time: 8 Findings: Normal colonoscopy. Procedure Description: Informed consent was obtained. The patient was taken to the endoscopy suite and placed in the left lateral decubitus position. After adequate intravenous sedation, digital rectal exam was performed, which showed evidence of perianal skin tags. A colonoscope was inserted into the rectum and negotiated to the cecum with some difficulty given tortuous colon. The ileocecal valve and appendiceal orifice were identified. The entire colonic mucosa was then carefully circumferentially inspected upon slow withdrawal of the scope. The entire colon all appeared normal. Retroflexion in the rectum was unremarkable. The patient tolerated the procedure well with no complications. Postoperatively, the patient was transferred to the recovery room in stable condition. Midnight Bowel Prep Midnight Bowel Prep Right Colon: 3 Left Colon: 3 Transverse Colon: 3 Total Score: 9
--- NOTE | 2025-01-29 10:41 | W.ANESPOSTOP ---
Postoperative Evaluation Date, Time and Location Date Performed: 01/29/25 Time Performed: 10:42 Patient Location: Day Surgery Unit Vital Signs Most Recent Imported Vital Signs: Most Recent Vital Signs Temp Pulse Resp BP Pulse Ox 36 C L 65 16 103/63 98 01/29/25 10:26 01/29/25 10:26 01/29/25 10:26 01/29/25 10:26 01/29/25 10:26 Pain Score Most Recent Pain Score: Most Recent Pain Score Pain Level 5 01/29/25 10:26 Assessment Mental Status: Awake (Alert & Oriented to Patient Baseline) Airway and Respiratory Function: Patent airway with normal (patient baseline) respiratory exam Cardiovascular Function: Hemodynamically Stable Hydration Status: Adequately Hydrated Nausea & Vomiting: No Nausea or Vomiting Pain: Pt. Denies Any Pain Peripheral Nerve Block: Patient did not receive a nerve block
[2025-01-29 10:50] VITALS: BP 119/75; PULSE 51; RESP 16; TEMP 36.4; O2SAT 100
== END 2025-01-29 10:55 | disposition home or self-care (01) ==
PROVIDERS: PCP Family Medicine; Visit Provider Student in an Organized Health Care Education/Training Program
PROC: 0DJD8ZZ Inspection of Lower Intestinal Tract, Via Natural or Artificial Opening Endoscopic (ICD-10-PCS; CPT 45378; principal; 2025-01-29 09:15)
DX: Z12.11 Encounter for screening for malignant neoplasm of colon (principal); Z86.0101 Personal history of adenomatous and serrated colon polyps; Z80.0 Family history of malignant neoplasm of digestive organs
CPT/HCPCS: 45378; J2704